=== PATIENT | male | born 1960 ===

== ENCOUNTER 2021-01-05 08:24 | Outpatient (CLI) | payer OTHER | END 2021-01-05 08:29 | disposition home or self-care (01) | LOC: RX STUDY 08:24 | PROVIDERS: ATTEND Otolaryngology | DX: K22.8 Other specified diseases of esophagus (principal); R13.14 Dysphagia, pharyngoesophageal phase; M54.2 Cervicalgia ==

== ENCOUNTER 2022-06-28 11:27 | Outpatient (CLI) | payer OTHER | END 2022-06-28 11:42 | disposition home or self-care (01) | LOC: SONOGRAMA 11:27 | PROVIDERS: ATTEND Internal Medicine Cardiovascular Disease | DX: N18.30 Chronic kidney disease, stage 3 unspecified (principal) ==